=== PATIENT | female | born 1965 | race Caucasian/White ===

== ENCOUNTER 2020-10-11 15:17 | Emergency (ER) | payer MEDICAID, OTHER ==
[~2020-10-11] VITALS: Ht 162.6 cm; Wt 81.6 kg
[2020-10-11] MEDS ORDERED: SODIUM CHLORIDE 0.9% 1,000 ML IV ONE ×2 (16:00→19:15)
[2020-10-11] MEDS ORDERED: PIPERACILLIN-TAZOB 3.375GM 100 ML IV ONE (16:00)
[2020-10-11] MEDS ORDERED: VANCOMYCIN PER PHARMACY 0 MG IV SCH (16:00)
[2020-10-11 16:51] LABS: Basophils # (auto) 0 10 ^3/uL (0-0.2); Basophils % (auto) 0.5 % (0.0-2.0); Eosinophils # (auto) 0 10 ^3/uL (0-0.8); Eosinophils % (auto) 0.2 % (0.0-7.0); Hematocrit 42.8 % (36.0-46.0); Lymphocytes # (auto) 1.9 10 ^3/uL (0.4-5.4); Lymphocytes % (auto) 19.7 % (10.0-50.0); Mean Corpuscular Hemoglobin 29.8 pg (28.0-32.0); Mean Corpuscular Hgb Conc. 35.1 g/dL (32.0-36.0); Monocytes % (auto) 10.5 % (0.0-12.0); Neutrophils # (auto) 6.5 10 ^3/uL (1.6-8.6); Neutrophils % (auto) 69.1 % (37.0-80.0); Nucleated Red Blood Cells % 0.2 %; Platelet Count (auto) 178 10^3/uL (140-450); Red Blood Cells 5.04 10^6/uL (4.0-5.20); Red Cell Distribution Width 13.4 % (11.8-14.3); White Blood Cell 9.4 10^3/uL (4.4-10.8)
[2020-10-11 17:06] LABS: Alanine Aminotransferase 31 U/L (13-56); Albumin 3.3 g/dL (3.4-5.0); Anion Gap 11 (5-15); Blood Urea Nitrogen 20 mg/dL (7-18); Calcium 9.3 mg/dL (8.5-10.1); Carbon Dioxide 25 mmol/L (21-32); Chloride 96 mmol/L (98-107); Glucose 225 mg/dL (74-106); Magnesium 2.9 mg/dL (1.6-2.6); Potassium 3.2 mmol/L (3.5-5.1); Sodium 132 mmol/L (136-145)
[2020-10-11 17:08] LABS: INR 1.04 (0.9-1.15); Partial Thromboplastin Time 29.9 sec (23.0-31.2)
[2020-10-11 17:09] LABS: Lactic Acid w/Reflex 2.1 mmol/L (0.4-2.0)
[2020-10-11 17:11] LABS: Alkaline Phosphatase 104 U/L (45-117); Aspartate Aminotransferase 24 U/L (15-37); BUN/Creatinine Ratio 25.6; Bilirubin, Total 0.7 mg/dL (0.2-1.0); GFR African American 99 mL/min; GFR Non-African American 82 mL/min; Total Protein 7.6 g/dL (6.4-8.2)
[2020-10-11] MEDS ORDERED: POTASSIUM EFFERVESENT TAB 25 MEQ PO ONE (19:15)
[2020-10-11] MEDS ORDERED: VANCOMYCIN 1GM/250ML 250 ML IV ONE (20:00)
[2020-10-11 22:00] VITALS: BP 100/70
[2020-10-12] MEDS ORDERED: VANCOMYCIN 1GM/250ML 250 ML IV SCH (08:00)
== END 2020-10-11 22:15 | disposition home or self-care (01) ==
LOC: ER 15:17
DX: L03.115 Cellulitis of right lower limb (principal); E11.9 Type 2 diabetes mellitus without complications; I10 Essential (primary) hypertension; Z86.14 Personal history of Methicillin resistant Staphylococcus aureus infection; Z20.822 Contact with and (suspected) exposure to COVID-19
CPT/HCPCS: 36415; 71045; 73590; 80053; 83605; 83735; 83880; 84484; 85025; 85379; 85610; 85730; 87040; 87426; 93005; 93971; 96365; 96366; 96367; 99285; C9803; J2543; J3370; U0003